=== PATIENT | female | born 1935 | race Two or more races ===

== ENCOUNTER 2018-10-07 08:14 | Outpatient (CLI) | payer OTHER | END 2018-10-07 08:17 | disposition home or self-care (01) | LOC: TOM 08:14 | DX: Z12.11 Encounter for screening for malignant neoplasm of colon (principal); K63.5 Polyp of colon ==

== ENCOUNTER 2019-06-21 08:49 | Outpatient (CLI) | payer OTHER | END 2019-06-21 08:51 | disposition home or self-care (01) | LOC: SONOGRAMA 08:49 | DX: E04.2 Nontoxic multinodular goiter (principal) ==

== ENCOUNTER 2020-11-11 10:14 | Emergency (ER) | payer OTHER ==
[~2020-11-11] VITALS: Ht 162.6 cm; Wt 65.3 kg
== END 2020-11-11 15:49 | disposition home or self-care (01) ==
LOC: ER 10:14
DX: R30.0 Dysuria (principal)

== ENCOUNTER 2020-11-23 08:46 | Emergency (ER) | payer OTHER ==
[~2020-11-23] VITALS: Ht 160 cm; Wt 68.0 kg
[2020-11-23] MEDS ORDERED: OMEPRAZOLE MAGN20 MG PO (09:31)
[2020-11-23] MEDS ORDERED: NORVASC5 MG PO (09:31)
[2020-11-23] MEDS ORDERED: SYNTHROID50 MCG PO (09:33)
[2020-11-23] MEDS ORDERED: CAMBIA50 MG PO (09:33)
[2020-11-23] MEDS ORDERED: NAMENDA10 MG PO (09:34)
[2020-11-23] MEDS ORDERED: PYRIDIUM DS200 MG PO (11:45)
[2020-11-23] MEDS ORDERED: UTIX PO (11:45)
== END 2020-11-23 12:16 | disposition home or self-care (01) ==
LOC: ER 08:46
DX: N30.00 Acute cystitis without hematuria (principal)

== ENCOUNTER 2022-02-15 09:06 | Emergency (ER) | payer OTHER ==
[~2022-02-15] VITALS: Ht 160 cm; Wt 63.5 kg
[~2022-02-15 09:06] MED LIST: CAMBIA50 MG PO; NAMENDA10 MG PO; NORVASC5 MG PO; OMEPRAZOLE MAGN20 MG PO; PYRIDIUM DS200 MG PO; SYNTHROID50 MCG PO; UTIX PO
[2022-02-15] MEDS ORDERED: ESCITALOPRA5 MG/5 ML PO (09:50)
[2022-02-15] MEDS ORDERED: PEPCID AC20 MG PO (09:51)
[2022-02-15] MEDS ORDERED: HYDROCHLOROTHIA25 MG PO (09:52)
== END 2022-02-15 17:07 ==
LOC: ER 09:06
DX: R06.02 Shortness of breath (principal); I25.10 Atherosclerotic heart disease of native coronary artery without angina pectoris; I25.2 Old myocardial infarction; I10 Essential (primary) hypertension

== ENCOUNTER 2024-10-23 04:53 | Emergency (ER) | payer OTHER ==
[~2024-10-23] VITALS: Ht 160 cm; Wt 68.0 kg
[~2024-10-23 04:53] MED LIST changes: +ESCITALOPRA5 MG/5 ML PO; +HYDROCHLOROTHIA25 MG PO; +PEPCID AC20 MG PO
[2024-10-23] MEDS ORDERED: ECOTRIN81 MG PO (05:17)
[2024-10-23] MEDS ORDERED: METFORMIN HCL500 M3 PO (05:17)
[2024-10-23] MEDS ORDERED: CRESTOR40 MG (05:18)
[2024-10-23] MEDS ORDERED: 0.9 % SODIUM CHLORIDE 1,000 ML IV STA (06:19)
[2024-10-23] MEDS ORDERED: KETOROLAC TROMETHAMINE 30 MG VIAL IV STA (06:20)
[2024-10-23] MEDS ORDERED: HYOSCYAMINE SULFATE 0.125 MG TAB.SUBL SL ONE (06:30)
[2024-10-23 07:55] LABS: BASO % 0.6 % (0.1-1.2); EOS % 0.9 % (0.7-7.0); HEMATOCRIT 34.3 % (34.1-44.9); HEMOGLOBIN 11.4 g/dL (11.2-15.7); LYMPH # 1.83 (1.18-3.74); LYMPH % 16.2 % (19.3-53.1); MEAN CORPUSCULAR HEMOGLOBIN 28.7 pg (25.6-32.2); MONO % 11.5 % (4.7-12.5); NEUT # 7.95 (1.56-6.13); NEUT % 70.3 % (34.0-71.1); PLATELET COUNT 204 K/uL (163-369); RED BLOOD COUNT 3.97 M/uL (3.93-5.22); RED CELL DISTRIBUTION WIDTH 14.4 % (11.6-14.4)
[2024-10-23 08:09] LABS: ALBUMIN 3.1 gm/dL (3.4-5.0); BILIRUBIN TOTAL 0.43 mg/dL (0.3-1.2); CALCIUM 8.8 mg/dL (8.5-10.1); CREATININE SERUM 0.98 mg/dL (0.55-1.02); GFR 53.68; POTASSIUM 3.56 mEq/L (3.5-5.1); TOTAL PROTEIN 7.1 gm/dL (6.4-8.2)
[2024-10-23 08:10] LABS: INR 0.97; PARTIAL THROMBOPLASTIN TIME 24.8 SECONDS (22.0-34.0); PROTHROMBIN TIME 10.6 SECONDS (9.0-11.5)
[2024-10-23] MEDS ORDERED: METRONIDAZOLE/SODIUM CHLORIDE 500 MG/100 ML PIGGYBACK IV ONE (10:30)
[2024-10-23 11:53] LABS: PH,URINE 7.5 (5.0-8.0); URINE APPEARANCE Clear; URINE BILIRRUBIN Negative (NEGATIVE); URINE BLOOD Negative; URINE COLOR Yellow; URINE GLUCOSE Negative (NEGATIVE); URINE KETONE Negative (NEGATIVE); URINE LEUKOCYTE Trace; URINE NITRATE Negative; URINE PROTEIN Negative (NEGATIVE); URINE UROBILINOGEN 0.2 E.U./dl
[2024-10-23 11:57] LABS: URINE EPITHELIAL CELLS 2.8 uL (0.0-38.8); URINE RBC 2.3 uL (0.0-20.8); URINE WBC 15.6 uL (0.0-23.2)
== END 2024-10-23 14:45 | disposition home or self-care (01) ==
LOC: ER 04:53
PROVIDERS: Emergency Medicine
DX: K57.32 Diverticulitis of large intestine without perforation or abscess without bleeding (principal); R10.32 Left lower quadrant pain; R10.9 Unspecified abdominal pain

== ENCOUNTER 2024-12-08 06:00 | Day surgery (SDC) | payer OTHER ==
[2024-12-01 12:22] VITALS: BP 146/76
[~2024-12-08] VITALS: Ht 157.5 cm; Wt 61.2 kg
[~2024-12-08 06:00] MED LIST changes: +CRESTOR40 MG; +ECOTRIN81 MG PO; +METFORMIN HCL500 M3 PO; +PRILOSEC OTC20 MG PO
[2024-12-08] MEDS ORDERED: LIDOCAINE HCL 1% 20 ML VIAL IJ ONE (08:30)
[2024-12-08] MEDS ORDERED: BACITRACIN 28.35 GM OINT.TUBE TOP ONE (08:30)
[2024-12-08] MEDS ORDERED: BUPIVACAINE HCL 30 ML VIAL IJ ONE (08:30)
[2024-12-08] MEDS ORDERED: POVIDONE-IODINE 118 ML BOTT TOP ONE (08:30)
[2024-12-08] MEDS ORDERED: CEFAZOLIN SODIUM 1,000 MG VIAL IV ONE (08:30)
== END 2024-12-08 11:15 | disposition home or self-care (01) ==
LOC: CIR.AMB 06:00
PROVIDERS: ATTEND Surgery Surgery of the Hand
DX: M65.842 Other synovitis and tenosynovitis, left hand (principal); M67.844 Other specified disorders of tendon, left hand